=== PATIENT | male | born 1940 | race Caucasian/White ===

== ENCOUNTER → 2023-08-18 | Outpatient (CLI) | payer MEDICARE ==
[~2023-08-18] MED LIST: AMLO-258 PO; APIX2.5T PO; ATOR20TA65 PO; DRON400T7 PO; FAMO40TA7 PO; FURO40TA7 PO; LEVO125T95 PO; METO-409 PO; METO50TA9 PO; MULT-1258 PO; OMEP40CA21 PO; POTA-364 PO; PREG100C56 PO; VITA-328 PO
[2023-08-18 13:04] LABS: ALBUMIN 3.7 g/dL (3.5-5.0); BILIRUBIN,TOTAL 0.7 mg/dL (0.2-1.0); CREATININE 1.5 mg/dL (0.5-1.5); POTASSIUM 3.9 mmol/L (3.5-5.1)
== END | disposition home or self-care (01) ==
LOC: LAB 11:25
PROVIDERS: ATTEND Student in an Organized Health Care Education/Training Program
DX: R07.9 Chest pain, unspecified (principal)
CPT/HCPCS: 36415; 80053; 80061

== ENCOUNTER → 2023-09-15 | Outpatient (CLI) | payer MEDICARE ==
[~2023-09-15] MED LIST changes: +IOHEXOL 350 MG/ML 100ML INFUS..BTL IV ONE; +METOPROLOL TARTRATE 1 MG/ML 5ML VIAL IV ONE
== END | disposition home or self-care (01) ==
LOC: RAH 07:36
PROVIDERS: ATTEND Student in an Organized Health Care Education/Training Program
DX: R07.9 Chest pain, unspecified (principal)
CPT/HCPCS: 75574; J3490; Q9967

== ENCOUNTER 2023-10-22 07:04 | Day surgery (SDC) | payer MEDICARE ==
[2023-10-20 13:53] VITALS: BP 138/76; PULSE 60; RESP 18
[2023-10-20 14:36] LABS: APPEARANCE,URINE CLEAR (CLEAR); BILIRUBIN,URINE NEGATIVE (NEGATIVE); COLOR,URINE YELLOW (YELLOW); GLUCOSE, URINE (UA) NEGATIVE (NEGATIVE); KETONES,URINE NEGATIVE (NEGATIVE); LEUKOCYTE ESTERASE ,URINE NEGATIVE Leu/uL (NEGATIVE); NITRATE,URINE NEGATIVE (NEGATIVE); OCCULT BLOOD,URINE NEGATIVE (NEGATIVE); PROTEIN,URINE NEGATIVE (NEGATIVE); UROBILINOGEN,URINE 0.2 mg/dL (0.2-1.0)
[2023-10-20 14:38] LABS: BASOPHILS # (AUTO) 0.05 K/uL (0.00-0.20); BASOPHILS % (AUTO) 0.8 % (0.0-5.0); CREATININE 1.7 mg/dL (0.5-1.5); EOSINOPHILS # (AUTO) 0.19 K/uL (0.00-0.70); HEMATOCRIT 42.6 % (42-54); IMMATURE GRANULOCYTE ABSOLUTE 0.01 K/uL (0-1); INR < 0.93 (0.85-1.15); LYMPHOCYTES % (AUTO) 30.4 % (21.0-51.0); MEAN CORPUSCULAR HEMOGLOBIN 32.2 pg (27.0-33.0); MEAN CORPUSCULAR HGB CONC 33.6 g/dL (32.0-36.0); MEAN CORPUSCULAR VOLUME 95.9 fL (79-99); MONOCYTES # (AUTO) 0.9 K/uL (0.1-1.0); MONOCYTES % (AUTO) 13.6 % (3.0-13.0); NEUTROPHILS # (AUTO) 3.4 K/uL (1.8-7.7); PLATELET COUNT (AUTO) 177 K/uL (130-400); POTASSIUM 3.7 mmol/L (3.5-5.1); PROTHROMBIN TIME 10.6 SEC (9.6-11.6); RED BLOOD CELL COUNT(AUTO) 4.44 MIL/uL (4.50-6.20); RED CELL DISTRIBUTION WIDTH 12.6 % (11.0-15.5); WHITE BLOOD COUNT (AUTO) 6.4 K/uL (4.8-10.8)
[2023-10-20 14:39] LABS: PARTIAL THROMBOPLASTIN TIME 30.3 SEC (26.3-35.5)
[2023-10-20 14:48] LABS: ADD UA MICROSCOPIC NO
[2023-10-20 15:30] LABS: B-TYPE NATRIURETIC PEPTIDE 44 pg/mL (0-100)
[~2023-10-22] VITALS: Ht 157.5 cm; Wt 85.7 kg
[2023-10-22] VITALS (9 sets, daily range): BP systolic 121–136; BP diastolic 36–76; PULSE 60–69; RESP 16–19
[~2023-10-22 07:04] MED LIST changes: +ATOR10 PO; -ATOR20TA65 PO; +FURO40TA5 PO; -FURO40TA7 PO; -IOHEXOL 350 MG/ML 100ML INFUS..BTL IV ONE; +METO-391 PO; -METO-409 PO; -METO50TA9 PO; -METOPROLOL TARTRATE 1 MG/ML 5ML VIAL IV ONE; -MULT-1258 PO; +MULT-1289 PO; +MV-M1TAB20 PO; -POTA-364 PO; +POTA20PA41 PO; -PREG100C56 PO; -VITA-328 PO; +VITA0.4T20 PO
[2023-10-22] MEDS ORDERED: 0.9%NACL 1000ML 1,000 ML IV ONE (07:25)
[2023-10-22] MEDS ORDERED: FENTANYL CITRATE PF 50 MCG/1 ML 2ML VIAL ONE (11:46)
[2023-10-22] MEDS ORDERED: LIDOCAINE HCL 400MG/20ML VIAL ONE (11:46)
[2023-10-22] MEDS ORDERED: MIDAZOLAM HCL 1 MG/ML 2ML VIAL ONE ×3 (11:47→13:11)
[2023-10-22] MEDS ORDERED: HEPARIN 10,000 UNIT/10ML (1,000 UNIT/ML) VIAL ONE (11:47)
[2023-10-22] MEDS ORDERED: IOHEXOL 350 MG/ML 100ML INFUS..BTL IV ONE (11:47)
[2023-10-22] MEDS ORDERED: VERAPAMIL HCL 2.5 MG/ML VIAL ONE (11:47)
[2023-10-22] MEDS ORDERED: IOHEXOL-350 75 ML VIAL IV ONE (13:11)
[2023-10-22] MEDS ORDERED: CLOPIDOGREL 300MG TAB ONE (13:21)
[2023-10-22] MEDS ORDERED: ASPIRIN 325MG EC TAB PO ONE (13:59)
[2023-10-22] MEDS ORDERED: 0.9%NACL 1000ML 1,000 ML IV SCH (14:00)
[2023-10-22] MEDS ORDERED: GLUCAGON 1MG KIT 1 MG ML IM PRN (14:00)
[2023-10-22] MEDS ORDERED: DEXTROSE 50%-WATER 50 ML DISP.SYRIN IV PRN (14:00)
[2023-10-23] MEDS ORDERED: CLOPIDOGREL 75MG TAB PO SCH (09:00)
== END 2023-10-22 17:30 | disposition home or self-care (01) ==
LOC: DAH 07:04
PROVIDERS: ATTEND Student in an Organized Health Care Education/Training Program
DX: I25.119 Atherosclerotic heart disease of native coronary artery with unspecified angina pectoris (principal); I10 Essential (primary) hypertension; E78.2 Mixed hyperlipidemia; I48.91 Unspecified atrial fibrillation; Z98.890 Other specified postprocedural states; Z98.41 Cataract extraction status, right eye; Z98.42 Cataract extraction status, left eye; Z88.2 Allergy status to sulfonamides; Z79.01 Long term (current) use of anticoagulants; Z79.899 Other long term (current) drug therapy
CPT/HCPCS: 80048; 83880; 85025; 85610; 85730; 81003; 36415; 71045; 93005; 93571; 85347 ×2; 82948; 93458; C9600; C1887 ×2; C1769 ×2; C1725 ×2; C1874 ×2; C1894; J3010; J3490 ×2; J7030; J1644 ×3; J2250 ×3; Q9967 ×2; A4215; A4222; A4221; A4663; A4216; A4606; Q9965 ×3; A4223 ×3; 99156; 99157

== ENCOUNTER → 2023-11-09 | Outpatient (CLI) | payer MEDICARE | END | disposition home or self-care (01) | LOC: RAH 09:38 | PROVIDERS: ATTEND Student in an Organized Health Care Education/Training Program | DX: K57.30 Diverticulosis of large intestine without perforation or abscess without bleeding (principal); R10.0 Acute abdomen | CPT/HCPCS: 74176 ==